=== PATIENT | male | born 1985 | race Caucasian/White ===

== ENCOUNTER 2017-04-23 18:21 | Emergency (ER) | payer OTHER ==
--- NOTE | ~2017-04-23 | ER ---
PATIENT'S NAME: LAMONT MALDONADO [facility] AGE: 32 Y [address] ROOM: [place] [address] LOCATION: ED ADMIT DATE: 04/23/2017 ER/Outpatient Report DISCHARGE DATE: 04/23/2017 FAMILY PHYSICIAN: Physician, Unknown ATTENDING PHYSICIAN: Koffi Hartmann Time of Arrival: 1822 hours. Time of Exam: 1839 hours. CHIEF COMPLAINT: Jaw pain. HISTORY OF PRESENT ILLNESS: The patient states he has been having left upper jaw pain for the past week. Did see Dr. Huntley in [place] on Wednesday and got started on amoxicillin, which he has been taking. He continues to have quite a bit of pain, it has worsened over the last 2 days. He has been nauseated, but no vomiting. Denies any trauma to his face or jaw. Has not seen a dentist. He does take Mobic and hydrocodone on a regular basis for chronic back problems. Sees Dr. Joseph for his pain control. ALLERGIES: MORPHINE. CURRENT MEDICATIONS: On his chart and reviewed by me. PAST SURGERY HISTORY: Compression of L3-L4 and L5-S1. PAST SURGERIES: Back surgery, gallbladder, appendectomy, and vasectomy. SOCIAL HISTORY: He smokes a pack per day and has for the last 20 years. Denies use of drugs and alcohol. REVIEW OF SYSTEMS: Negative other than those mentioned in the HPI. PHYSICAL EXAMINATION: VITAL SIGNS: Blood pressure was 133/82, pulse of 101, respirations 20, temperature of 97.7, and O2 saturation is 98% on room air. GENERAL: He is awake, alert, and oriented x4. SKIN: [place], warm, and dry. PATIENT'S NAME: LAMONT MALDONADO [facility] AGE: 32 Y [address] ROOM: [place] [address] LOCATION: ED ADMIT DATE: 04/23/2017 ER/Outpatient Report DISCHARGE DATE: 04/23/2017 FAMILY PHYSICIAN: Physician, Unknown ATTENDING PHYSICIAN: Koffi Hartmann RESPIRATIONS: Even and nonlabored. HEENT: Oropharynx is clear posteriorly. He does have teeth in various stages of decay. He does have some redness and swelling in the left upper posterior teeth area. He is tender to palpate along the left maxilla area. LUNGS: Lung sounds are clear throughout. HEART: Regular rate and rhythm. EMERGENCY ROOM COURSE: The patient was given Zofran 4 mg ODT and Toradol 60 mg IM. IMPRESSION: Jaw pain due to abscessed tooth. PLAN: Home, rest. Ice or heat to the area. Prescription was written for Bactrim DS to take versus the amoxicillin. He is to continue his current medications. If he continues to have problems, he is to follow up with primary provider, Dr. Mayorga, his pain doctor. He verbalized understanding. RAJWINDER MCCOY APRN FOR MD STANISLAW PEREIRA/jeffery /[id number] d: 04/24/17 0145 t: 04/28/17 1410, OUTPATIENT REPORT
[~2017-04-23 18:21] MED LIST: DELTASONE10 MG PO; PERCOCET 10-321 EACH PO
== END 2017-04-23 19:11 | disposition disaster alternative care site (69) ==
LOC: GMED 18:21
DX: K04.7 Periapical abscess without sinus (principal); R68.84 Jaw pain; F17.210 Nicotine dependence, cigarettes, uncomplicated; Z88.5 Allergy status to narcotic agent; Z98.890 Other specified postprocedural states; Z79.891 Long term (current) use of opiate analgesic; Z79.899 Other long term (current) drug therapy
CPT/HCPCS: J1885